=== PATIENT | female | born 1940 | race Caucasian/White ===

== ENCOUNTER 2016-07-14 15:47 | Emergency (ER) | payer MEDICARE, OTHER ==
[~2016-07-14 15:47] MED LIST: ABILIFY2 MG PO; ARICEPT5 MG PO; COREG 12.5MG12.5 MG PO; DIGOX125 MCG PO; ELIQUIS5 MG PO; FOLIC ACID 1 MG1 MG PO; GLUCOTROL5 MG PO; HUMULIN R100 UNITS/ SQ; K-DUR TAB 20 M20 MEQ PO; LASIX40 MG PO; LEVEMIR100 UNIT/1 SQ; LIPITOR TAB 1010 MG PO; LISINOPRIL10 MG PO; METOPROLOL TART25 MG PO; PROTONIX40 MG PO; PROZAC40 MG PO; SPIRONOLACTONE25 MG PO; SYNTHROID150 MCG PO; TRADJENTA5 MG PO; VALIUM 5 MG TAB5 MG PO; VITAMIN B-650 MG PO; ZESTRIL5 MG PO; ZYLOPRIM 100 M100 MG PO
[2016-07-14 17:47] LABS: HEMOGLOBIN 11.1 gm/dl (12.3-15.3); RED BLOOD COUNT 4.58 M/UL (4.00-5.10); WHITE BLOOD COUNT 9.9 K/UL (4.5-11.0)
[2016-07-14 18:03] LABS: BUN/CREATININE RATIO 15 (0-10)
== END 2016-07-14 22:11 | disposition home or self-care (01) ==
LOC: ER1 15:47
PROVIDERS: Emergency Medicine
DX: R53.1 Weakness (principal); I48.91 Unspecified atrial fibrillation; J44.9 Chronic obstructive pulmonary disease, unspecified; E11.9 Type 2 diabetes mellitus without complications
CPT/HCPCS: 36415; 71010; 80053; 85025; 85610; 85730; 93005; 99285

== ENCOUNTER 2016-07-17 13:06 | Emergency (ER) | payer MEDICARE, OTHER ==
[2016-07-17 16:12] LABS: HEMOGLOBIN 11.3 gm/dl (12.3-15.3); RED BLOOD COUNT 4.76 M/UL (4.00-5.10); WHITE BLOOD COUNT 9.1 K/UL (4.5-11.0)
[2016-07-17 16:28] LABS: BUN/CREATININE RATIO 14 (0-10)
== END 2016-07-17 17:58 | disposition home or self-care (01) ==
LOC: ER1 13:06
PROVIDERS: Physician Assistant
DX: R42 Dizziness and giddiness (principal); R20.2 Paresthesia of skin; R53.83 Other fatigue; R30.0 Dysuria; I48.91 Unspecified atrial fibrillation; I10 Essential (primary) hypertension; E11.9 Type 2 diabetes mellitus without complications
CPT/HCPCS: 36415; 70450; 71010; 80053; 81001; 82550; 82553; 83874; 84484; 85025; 99285